=== PATIENT | female | born 1995 | race Caucasian/White ===

== ENCOUNTER → 2018-10-21 | Outpatient (CLI) | payer OTHER ==
[~2018-10-21] MED LIST: ALBU90OI; AMOX500 PO; ANTOXYBENA LEFTEAR; CODACE30 PO; FLUT.05NI; METPRE4DP PO; MIDOL PO; PENVK250; POLTRIOPSO OS
== END | disposition home or self-care (01) ==
LOC: LAB EV 15:15 → LAB SHORT 15:15
DX: N39.0 Urinary tract infection, site not specified (principal)
CPT/HCPCS: 87086